=== PATIENT | male | born 1980 | race Caucasian/White ===

== ENCOUNTER → 2017-10-31 11:19 | Day surgery (SDC) | payer BC ==
--- NOTE | 2017-10-23 21:09 | HP ---
HISTORY AND PHYSICAL: DATE OF ADMISSION/SURGERY: 10/31/17 DATE OF HISTORY AND PHYSICAL: 10/23/17 SURGEON: Dr. Geetha Figueroa.* (DICTATED BY QUYNH CHOWDARY) PROCEDURE: Right shoulder rotator cuff repair open, removal of hardware. CHIEF COMPLAINT: Right shoulder pain. HISTORY OF PRESENT ILLNESS: Feliz is a 37-year-old male, who sustained an initial right shoulder injury on 10/27/16 and had a proximal humerus fracture. He was seen by Dr. Pierce who preformed an open reduction internal fixation on his humerus and he was released to full activities in January of 2017. 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 He says that at the time he was unable to raise the shoulder. He was very concerned for repeated injury. He denies any numbness or tingling. No fevers or chills. He has had a lot of pain. PAST MEDICAL HISTORY: The patient endorses a history of seizures. PAST SURGICAL HISTORY: 1. Right humerus ORIF. 2. Left knee MCL/ACL repair, arthroscopic. MEDICATIONS: Lamotrigine 150 mg b.i.d. ALLERGIES: No known drug allergies. FAMILY MEDICAL HISTORY: None. SOCIAL HISTORY: Twenty-year lnae-tqyo-nug-day tobacco. Occasional alcohol. Denies illicit drug use including marijuana. REVIEW OF SYSTEMS: Positive for current complaint, seizures. He endorses ability to walk a city block or flight of stairs without shortness of breath or chest pain. He denies any problems with anesthesia in the past and no history of DVT or PE. He also denies any history of bacterial or viral illnesses including MRSA, hepatitis C, HIV. Otherwise, the 14-point review of systems was negative. PHYSICAL EXAMINATION GENERAL: Feliz is a well-developed, well-nourished, 37-year-old male in no acute distress, alert, and oriented x3, with no gross neurologic deficiencies. He ambulates without a limp. VITAL SIGNS: Height 68 inches, weight 178 pounds. Blood pressure 138/96, respirations 16, temperature 97.3, pain level 7, BMI 27.1. HEENT: Normocephalic, atraumatic. Pupils equally, round, and reactive to light. Extraocular movements intact. NECK: Supple. No palpable cervical lymph nodes. Thyroid is smooth and nontender. PULMONARY: Lungs clear to auscultation bilaterally with no wheezes, rales, or rhonchi. CARDIAC: Regular rate and rhythm. No murmurs, rubs or gallops. No pedal edema. 2+ bilateral radial pulses bilaterally. ABDOMEN: Soft and nontender. MUSCULOSKELETAL: Right upper extremity: Right shoulder skin is intact without ecchymosis or swelling. He has a well-healed incision. He is tender about the subacromial space. He can forward flex to 130 degrees with pain, passively he can get higher. He can adduct to 50 degrees with a lot of pain. He has brisk capillary refill. He has weakness with rotator cuff strength testing. NEURO: Sensation intact to light touch at the right dorsal web space, volar, index, and long finger, and ulnar aspect of small finger as well as dorsal hand. DIAGNOSTIC STUDIES: CT was reviewed and that demonstrates mild migration of superior head, erosion of the greater tuberosity based on previous x-rays. No new fractures. There is a full osseous lesion. The hardware appears to be penetrating somewhat. IMPRESSION: Rotator cuff tear with indwelling hardware. PLAN: Feliz is scheduled to undergo a right shoulder rotator cuff repair open, removal of hardware with Dr. Figueroa on 10/31/17. He will return to clinic in 10 to 14 days postop for followup and suture removal. A prescription for pain medication will be e-scribed to the patient's pharmacy of record for postoperative pain management the day of surgery. 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 Otherwise, he would need to remain off work until he is cleared by Dr. Figueroa as he progresses. QUYNH CHOWDARY [id number]/[facility] #: [id number] [facility] HOSPITALKassandra
[~2017-10-31 11:19] MED LIST: Buffered Lidocaine 0.9% SYRIN* 5 ML/SYR SYRINGE INTRADERM ONE; Buffered Lidocaine 0.9% SYRIN* 5 ML/SYR SYRINGE ONE; Bupivacaine 0.5% SDV PF* 10-30ML VIAL ONE; Dexamethasone IV* 4 MG/ML 1 ML (4 MG) ONE; Lidocaine 2% PF * 5 ML VIAL ONE; Midazolam* 1 MG/ML 2 ML VIAL (2 MG) ONE; Naloxone* 0.4 MG/ML 1 ML VIAL IV PRN; Ondansetron INJ* 2 MG/ML VIAL ONE; Phenylephrine IV* 40 MCG/ML 10 ML SYRINGE ONE; Propofol* 10 MG/ML 20 ML BTL IV PUSH ONE; Sevoflurane* 1 BTL ONE; Succinylcholine* 20 MG/ML 10 ML VIAL ONE; ceFAZolin 2 GM PREMIX (*) 2 GM/50 ML BAG IVPB ONE; fentaNYL* 50 MCG/ML 2 ML VIAL (100 MCG VIAL) ONE
[2017-10-31 18:52] VITALS: BP 147/90
--- NOTE | 2017-11-01 07:37 | RAD ---
INDICATION: Hardware removal. COMPARISON: Comparison is made with a prior x-ray study of the right shoulder from September 28, 2017. TECHNIQUE: 7.3 seconds of intermittent fluoroscopic guidance were provided and 3 spot films of the right shoulder were obtained in the operating room. FINDINGS: The films demonstrate removal of the surgical plate and screws present along the lateral aspect of the proximal humerus. IMPRESSION: INTRAOPERATIVE CONTROL FILMS. CPT II Codes: 6045F
--- NOTE | 2017-11-03 22:04 | OP ---
CC: PCP, QUYNH Cantu * DATE OF OPERATION: 10/31/17 - [facility] DATE OF : 80 SURGEON: Geetha Figueroa MD ASSISTANTS: QUYNH Shipman and medical student named, Pradip, MS III. ANESTHESIOLOGIST: Dr. Beatty. ANESTHESIA: General interscalene block. PRE-OP DIAGNOSES: Right shoulder retained hardware with penetration and rotator cuff tear. POST-OP DIAGNOSES: Right shoulder retained hardware with penetration and rotator cuff tear. OPERATIVE PROCEDURE: 1. Right shoulder removal of hardware, plate and screws. 2. Open rotator cuff repair in a double-row fashion. COMPLICATIONS: None. ESTIMATED BLOOD LOSS: 100 cc. INDICATIONS: Feliz Smith is a 37-year-old male who had a mechanical fall with possible seizure around the [place] in 2015. He underwent open reduction and internal fixation at [facility] by a traumatologist whose name was Dr. Bey. He was noncompliant postoperatively and did not follow up after his 3 months visit. He states that about a month ago, he was working on a car when he felt a pop in his shoulder. He was unable to raise his arm. There is a concern for rotator cuff repair. Imaging revealed that the hardware was trying to penetrate the chondral surface. CT scan was done that confirmed that with a suspicion of a rotator cuff tear. Risks and benefits of surgery were discussed at length and included, but are not limited to bleeding, infection, damage to nerves, vessels, surrounding structures, wound nonhealing, persistent pain, need for surgery, scarring, stiffness, incomplete relief of symptoms, risks of anesthesia. He has elected to proceed. DESCRIPTION OF PROCEDURE: The patient was greeted in the preoperative area by the attending surgeon. The correct extremity was marked and the consent was confirmed. The patient underwent interscalene nerve block with anesthesiologist after which he was brought back to the operative suite and he was placed in the supine position on the operating table. He then underwent general anesthesia and endotracheal intubation after which he was placed in the lazy beach chair position. The right shoulder was draped over a hand table. Preoperative C-arm imaging was done that confirmed the positioning. The right shoulder was then prepped and draped in the usual sterile fashion beginning with chlorhexidine soap, scrub, and alcohol wipe and a final prep with ChloraPrep. After appropriate surgical pause indicating site, side, procedure, administration of antibiotics, the previous incision was incised using a 15 blade. The soft tissues were carefully dissected to expose the scar tissue and cephalic vein, which was identified. The scar tissue was then incised and the vein was taken laterally. The deltopectoral groove was assessed and soft tissue retractors were placed. The abundant adhesions under the deltoid were then removed using a carb as well as a curved Harvey. Blunt retractors were placed to help the exposure. The coracoid was identified. The pec tendon was identified. The plate was palpated and it was laterally placed. Once the adhesions were released subdeltoid and the shoulder was then carefully mobilized , the plate was identified and then carefully soft tissues were removed to expose the screws. The shoulder was placed in internal rotation. The screws were then removed with both locking and nonlocking in their entirety. There was no broken screws. The plate was then also gently removed from the humerus. The images were obtained to make sure that there was no remaining retained hardware. There were no obvious sutures attached to the plate, although there was a fixation done previously. There was obvious defect where the greater tuberosity should have been, but there was no accessory bone. The supraspinatus was identified. It was intact posteriorly. Infraspinatus was intact. Subscapularis as well as biceps were sitting in the groove appropriately. The anterior portion of the supraspinatus was found to have detachment. It was high- grade partial thickness. It was fully released. The cuff was then carefully mobilized and anchor was placed in the defect. A 4.75 Healicoil was placed in the defect, then passed to the tendon in a horizontal mattress configuration. The suture strands were then passed through a MultiFix anchor, which was then placed more laterally in the shoulder for a double row fixation. This restored the rotator cuff. The remainder of the cuff was intact. The wounds were copiously irrigated with sterile saline. The deltopectoral groove was then closed using a #2 Ethibond sutures. The wounds were irrigated again. The subcutaneous tissues were closed with 2-0 Vicryl and the skin with sb. Sterile dressings were applied. A Cryo/Cuff and UltraSling were applied. He was awoken from anesthesia and transferred to the PACU in stable condition. POSTOPERATIVE PLAN: He will be nonweightbearing. He will be allowed elbow, hand, and wrist range of motion as well as pendulum exercises. He will be discharged on pain medications and antibiotics. DVT prophylaxis is considered, but deferred due to no previous personal or family history. I will see the patient back in 10 to 14 days. [id number]/[facility] #: [id number] MTDKassandra
== END | disposition home or self-care (01) ==
LOC: OR 11:19
PROVIDERS: ATTEND Orthopaedic Surgery
DX: S46.011A Strain of muscle(s) and tendon(s) of the rotator cuff of right shoulder, initial encounter (principal); T84.84XA Pain due to internal orthopedic prosthetic devices, implants and grafts, initial encounter; Y83.1 Surgical operation with implant of artificial internal device as the cause of abnormal reaction of the patient, or of later complication, without mention of misadventure at the time of the procedure; X50.0XXA Overexertion from strenuous movement or load, initial encounter; Y92.9 Unspecified place or not applicable; R56.9 Unspecified convulsions; F17.210 Nicotine dependence, cigarettes, uncomplicated
CPT/HCPCS: 76001; 88300; C1713; J0330; J0690; J1100; J2250; J2405; J2704; J3010

== ENCOUNTER 2018-06-21 09:03 | Day surgery (SDC) | payer SELFPAY ==
--- NOTE | 2018-06-07 07:01 | HP ---
PREOPERATIVE HISTORY AND PHYSICAL: DATE OF ADMISSION/SURGERY: 06/21/18 DATE OF OFFICE VISIT: 06/06/18 ATTENDING SURGEON: Dr. Geetha Figueroa.* (DICTATED BY QUYNH HUMMEL) PROCEDURE: Right shoulder manipulation. CHIEF COMPLAINT: Right shoulder. HISTORY OF PRESENT ILLNESS: Feliz is a 38-year-old male who presents to the clinic for followup of his right shoulder. He underwent removal of hardware and open rotator cuff repair on 10/31/17 and has been struggling with adhesive capsulitis. He has failed conservative measures to include physical therapy and a corticosteroid injection and has not noticed improvement in motion and has therefore agreed to undergo a right shoulder manipulation with Dr. Figueroa on 06/21/18. He is otherwise doing well and has minimal pain in his shoulder. He denies numbness, tingling, fever, or chills. PAST MEDICAL HISTORY: Seizures. PAST SURGICAL HISTORY: Right humerus ORIF, left knee ACL/MCL repair arthroscopically, and a right shoulder removal of hardware with open rotator cuff repair. MEDICATIONS: Lamotrigine 150 mg 1 by mouth twice a day. ALLERGIES: No known drug allergies. FAMILY HISTORY: Denies pertinent family history. SOCIAL HISTORY: He is a current smoker, smokes half pack per day for the past 20 years. He reports occasional alcohol use. He denies illegal drug use. REVIEW OF SYSTEMS: A 14-point review of systems was reviewed with the patient. Positive for current complaint, otherwise negative. Denies history of DVT, PE, chest pain, shortness of breath, fever, chills, history of bleeding disorder. PHYSICAL EXAM: GENERAL: A 38-year-old well-developed, well-nourished male, in no acute distress. Alert and oriented x3. Appropriate mood and affect. Appropriate balance and coordination of the upper extremities. VITAL SIGNS: Height 68, weight 179, pulse 84, blood pressure 110/86, temperature 97.7, BMI 27.3. HEENT: Normocephalic, atraumatic. PERRLA. Throat clear. NECK: Supple. PULMONARY: Lungs are clear to auscultation bilaterally. No wheezing, rhonchi, or rales. CARDIO: Regular rate and rhythm. S1, S2. No murmurs, gallops, or rubs. No edema. ABDOMEN: Positive bowel sounds. Soft, nontender. NEURO: Alert and oriented x3. Cranial nerves grossly intact. MUSCULOSKELETAL: Right upper extremity: Skin is intact. No warmth or erythema. Well-healed incision, both scars widening. Forward flexion to 100, abduction to 90, external rotation to 55, internal rotation to lumbar spine. + 2 radial pulse. Sensation intact to light touch distally. IMPRESSION: Right shoulder adhesive capsulitis. PLAN: The patient is scheduled to undergo a right shoulder manipulation on with Dr. Figueroa because he continues to have adhesive capsulitis with lack of range of motion despite conservative measures to include physical therapy and injection. He will start physical therapy 1 to 2 days after surgery to continue to work on range of motion and will follow up with Dr. Figueroa 10 to 14 days postop. Percocet will be used for postop pain management. QUYNH HUMMEL [id number]/[facility] #: [id number] [facility] CENTERKassandra
[~2018-06-21 09:03] MED LIST changes: -Buffered Lidocaine 0.9% SYRIN* 5 ML/SYR SYRINGE ONE; -Bupivacaine 0.5% SDV PF* 10-30ML VIAL ONE; +Dexamethasone IV* 4 MG/ML 1 ML (4 MG) IV SLOW PU ONE; +Famotidine IV* 10 MG/ML 2 ML (20 mg) IV ONE; +Famotidine IV* 10 MG/ML 2 ML (20 mg) ONE; -Lidocaine 2% PF * 5 ML VIAL ONE; -Midazolam* 1 MG/ML 2 ML VIAL (2 MG) ONE; -Naloxone* 0.4 MG/ML 1 ML VIAL IV PRN; -Ondansetron INJ* 2 MG/ML VIAL ONE; -Phenylephrine IV* 40 MCG/ML 10 ML SYRINGE ONE; -Propofol* 10 MG/ML 20 ML BTL IV PUSH ONE; -Sevoflurane* 1 BTL ONE; -Succinylcholine* 20 MG/ML 10 ML VIAL ONE; -ceFAZolin 2 GM PREMIX (*) 2 GM/50 ML BAG IVPB ONE; -fentaNYL* 50 MCG/ML 2 ML VIAL (100 MCG VIAL) ONE
[2018-06-21] MEDS ORDERED: Ropivacaine (OR use only) 2 MG/ML 10 ML ONE (10:22)
[2018-06-21] MEDS ORDERED: DiMENhydriNATE IV* 50 MG/ML VIAL IV PUSH PRN (10:30)
[2018-06-21] MEDS ORDERED: Ondansetron INJ* 2 MG/ML VIAL IV PRN (10:30)
[2018-06-21] MEDS ORDERED: Naloxone* 0.4 MG/ML 1 ML VIAL IV PRN (10:30)
[2018-06-21] MEDS ORDERED: fentaNYL* 50 MCG/ML 2 ML VIAL (100 MCG VIAL) IV PRN (10:30)
[2018-06-21] MEDS ORDERED: oxyCODONE/Acetamin 5/325 MG* TAB PO PRN (10:30)
[2018-06-21] MEDS ORDERED: HYDROmorphone INJ* 0.5 MG/0.5 ML SYRINGE IV PRN (10:30)
[2018-06-21] MEDS ORDERED: ROPIVACAINE 5 MG/ML 30 ML BTL (0.5%) ONE ×2 (10:31)
[2018-06-21] MEDS ORDERED: fentaNYL* 50 MCG/ML 2 ML VIAL (100 MCG VIAL) ONE (10:32)
[2018-06-21] MEDS ORDERED: Midazolam* 1 MG/ML 5 ML VIAL (5 MG) ONE (10:32)
[2018-06-21] MEDS ORDERED: Ketorolac INJ* 30 MG/ML 1 ML VIAL ONE (10:33)
[2018-06-21] MEDS ORDERED: Propofol* 10 MG/ML 20 ML BTL IV PUSH ONE (10:33)
[2018-06-21] MEDS ORDERED: Lidocaine 2% PF * 5 ML VIAL ONE (10:33)
[2018-06-21] MEDS ORDERED: Ondansetron INJ* 2 MG/ML VIAL ONE (10:33)
[2018-06-21 12:06] VITALS: BP 130/89
--- NOTE | 2018-07-03 09:14 | OP ---
CC: PCP. OPERATIVE REPORT: DATE OF OPERATION: 06/21/18 DATE OF : 80 SURGEON: Geetha Figueroa MD SOLE CEMENTER: QUYNH Shipman Cable Installation Technician was needed to help positioning and retraction throughout the case. ANESTHESIOLOGIST: Dr. Chin. ANESTHESIA: Block with local MAC. PRE-OP DIAGNOSIS: Right shoulder adhesive capsulitis. POST-OP DIAGNOSIS: Right shoulder adhesive capsulitis. OPERATIVE PROCEDURE: Right shoulder manipulation under anesthesia. COMPLICATIONS: None. ESTIMATED BLOOD LOSS: Minimal. INDICATIONS: Feliz Smith is a 38-year-old male who has had previous ORIF of his shoulder in [facility] the year before. He then underwent removal of hardware, repair of the rotator cuff. He is st ill having issues with forward flexion and abduction of the shoulder. We diagnosed with possible adh esive capsulitis. Risks and benefits were discussed at length including but are not limited to bleed ing, infection, damage to nerves, vessels, surrounding structures, wound not healing, persistent pain , need for surgery, scarring, stiffness, incomplete relief of symptoms, risk of anesthesia. DESCRIPTION OF PROCEDURE: The patient was greeted in the preoperative area by the attending surgeon. The correct extremity was marked, consent was confirmed. The patient then underwent interscalene n erve block. He was brought back to the operating room suite where he was placed in a supine position on the operating room table. He then underwent general anesthesia after which surgical pause was do ne indicating side, site, and procedure. No antibiotics were administered after which the patient wa s then underwent a manipulation with forward flexion, careful adduction with external and internal ro tation until adhesions were gone. Preop motion, forward flex 90, abduction of 90, external rotation to about 45. Postop he was able to forward flex to 160, abduction to 150, externally rotated to him about the 7 degrees. He was then awoken from anesthesia. I placed in a regular sling, transferred t o PACU in stable condition. POSTOPERATIVE PLAN: He will be discharged on pain medication. He will be allowed range of motion as tolerated. He will start physical therapy tomorrow. He will have therapy session in the preanesthe razia area because it is Sunday today. We will see him back in 10 to 14 days. DVT prophylaxis was con sidered but deferred due to no previous personal or family history. [id number]/[facility] #: [id number]
== END 2018-06-21 12:35 | disposition home or self-care (01) ==
LOC: OR 09:03
PROVIDERS: ATTEND Orthopaedic Surgery
DX: M75.01 Adhesive capsulitis of right shoulder (principal); Z72.0 Tobacco use
CPT/HCPCS: J1100; J1885; J2250; J2405; J2704; J2795; J3010